=== PATIENT | female | born 1950 | race African-American/Black ===

== ENCOUNTER 2016-06-14 10:07 | Emergency (ER) | payer OTHER ==
[~2016-06-14] VITALS: Ht 172.7 cm; Wt 85.0 kg
[~2016-06-14 10:07] MED LIST: ASPI81TA82 PO; BENZ100 PO; BUME1TAB PO; CARV3.125 PO; CEPH500 PO; CYMB30CA PO; GABA300C3 PO; GUAI600 PO; KCL20 PO; LISI-589 PO; PACE200T4 PO; VENTAER INH; ZOFR4TAB3 SL; ZOLP5TAB3 PO; [UNRECOGNIZED DRUG - OTHER] PO
[2016-06-14 10:13] VITALS: BP 193/111; PULSE 78; RESP 24; TEMP 98.3; O2SAT 86
[2016-06-14 10:20] VITALS: O2SAT 92
[2016-06-14] MEDS ORDERED: SODIUM CHLORIDE 0.9% FLUSH 5 ML FLUSH IVF PRN (10:30)
--- NOTE | 2016-06-14 10:39 | PD ---
HPI Chief Complaint: Abdominal Pain Time Seen by Provider: 10:39 Travel History International Travel<30 days: No Contact w/Intl Traveler<30days: No Traveled to known affect area: No History of Present Illness HPI 65-year-old female with PMH of HTN, CHF, CAD, CVA, emphysema (on 2L O2 by NC at home) surgical history of cholecystectomy, tubal ligation presents to the ED for evaluation two-week history of abdominal pain and generalized weakness. Abdominal pain described as constant, rated 4/10 on presentation. Patient endorses decreased appetite, nausea and subjective fevers. She denies vomiting, diarrhea, constipation, melena or hematochezia, dysuria or hematuria. No treatment attempted at home. Patient states that she sought treatment today after being out of town. Endorses compliance with her home medications. Denies drinking alcohol or cigarette smoking. PFSH Past Medical History Arthritis: Yes Asthma: Yes Anxiety: Yes Depression: Yes Heart Rhythm Problems: Yes Cancer: No Cardiovascular Problems: Yes Congestive Heart Failure: Yes (ENLARGED HEART ) COPD: Yes (EMPYSEMA) Cerebrovascular Accident: Yes Diminished Hearing: Yes (HEARING IMPAIRED, HEARING AID IN LEFT EAR) Endocrine: No Gastrointestinal Disorders: Yes GERD: Yes Genitourinary: No Hypertension: Yes Immune Disorder: No Musculoskeletal: Yes Neurologic: No Psychiatric: Yes Reproductive: No Respiratory: Yes Tetanus Vaccination: < 5 Years ?: Not Past Surgical History Abdominal Surgery: Yes (gallbladder ) AICD: Yes (PACER/DEFIB) Cardiac Surgery: Yes (pacemaker ) Cholecystectomy: Yes Eye Surgery: Yes (cataracts ) Pacemaker: Yes Other Surgery: Yes Social History Alcohol Use: No Tobacco Use: No Substance Use: No Allergies-Medications (Allergen,Severity, Reaction): Coded Allergies: Codeine (Verified Allergy, Unknown, 06/14/16) Penicillin (Verified Allergy, Unknown, 06/14/16) Reported Meds & Prescriptions Reported Meds & Active Scripts Active Zofran Odt (Ondansetron Odt) 4 Mg Tab 4 Mg SL Q8HR PRN Reported Zolpidem (Zolpidem Tartrate) 5 Mg Tab 5 Mg PO HS PRN [potassimin chloride] 20 Meq PO DAILY Lisinopril 5 Mg Tab 5 Mg PO DAILY Gabapentin 300 Mg Cap 300 Mg PO HS Cymbalta DR (Duloxetine HCl) 30 Mg Capdr 30 Mg PO DAILY Coreg (Carvedilol) 3.125 Mg Tab 3.125 Mg PO BID Bumex (Bumetanide) 1 Mg Tab 1 Mg PO DAILY Aspir-81 (Aspirin) 81 Mg Tabdr 81 Mg PO DAILY Amiodarone (Amiodarone HCl) 200 Mg Tab 200 Mg PO DAILY Ventolin Hfa 18 GM Inh (Albuterol Sulfate) 90 Mcg/Act Aer 1 Puff INH Q4H PRN Review of Systems Except as stated in HPI: all other systems reviewed are Neg Physical Exam Narrative GENERAL: Well-nourished, well-developed nontoxic appearing black female in no acute distress. SKIN: Warm and dry. Multiple well-healed scars on the abdomen without signs of infection. HEAD: Normocephalic. EYES: No scleral icterus. No injection or drainage. NECK: Supple, trachea midline. No JVD or lymphadenopathy. CARDIOVASCULAR: Regular rate and rhythm without murmurs, gallops, or rubs. 2+ DP and radial pulses bilaterally. RESPIRATORY: Breath sounds clear and equal bilaterally. No accessory muscle use. GASTROINTESTINAL: Abdomen soft, nondistended. Tender to palpation across the upper quadrants, including epigastric region. No palpable masses. No pulsatile masses. MUSCULOSKELETAL: No cyanosis, or edema. Weakness of left side 2/2 CVA. BACK: Nontender without obvious deformity. No CVA tenderness. Data Data Last Documented VS Vital Signs Date Time Temp Pulse Resp B/P Pulse Ox O2 Delivery O2 Flow Rate FiO2 06/14/16 12:28 89 16 156/89 94 Nasal Cannula 2 06/14/16 10:13 98.3 Orders Complete Blood Count With Diff (06/14/16 10:18) Comprehensive Metabolic Panel (06/14/16 10:18) Lipase (06/14/16 10:18) Iv Access Insert/Monitor (06/14/16 10:18) Ecg Monitoring (06/14/16 10:18) Oximetry (06/14/16 10:18) Sodium Chloride 0.9% Flush (Ns Flush) (06/14/16 10:30) Ondansetron Inj (Zofran Inj) (06/14/16 11:00) Urinalysis - C+S If Indicated (06/14/16 10:46) Ct Abd/Pel W Iv Contrast(Rout) (06/14/16 10:46) Morphine Inj (Morphine Inj) (06/14/16 11:00) Iodixanol 320 Inj (Rad Ct) (Visipaque 32 (06/14/16 11:52) Labs Laboratory Tests Test 06/14/16 06/14/16 10:35 11:20 Sodium Level 136 MEQ/L Potassium Level 4.8 MEQ/L Chloride Level 98 MEQ/L Carbon Dioxide Level 30.2 MEQ/L Anion Gap 8 MEQ/L Blood Urea Nitrogen 24 MG/DL Creatinine 1.59 MG/DL Estimat Glomerular Filtration 40 ML/MIN Rate Random Glucose 94 MG/DL Calcium Level 9.4 MG/DL Total Bilirubin 1.5 MG/DL Aspartate Amino Transf 65 U/L (AST/SGOT) Alanine Aminotransferase 66 U/L (ALT/SGPT) Alkaline Phosphatase 230 U/L Total Protein 8.1 GM/DL Albumin 3.9 GM/DL Lipase 109 U/L White Blood Count 4.8 TH/MM3 Red Blood Count 4.60 MIL/MM3 Hemoglobin 12.8 GM/DL Hematocrit 40.1 % Mean Corpuscular Volume 87.1 FL Mean Corpuscular Hemoglobin 27.8 PG Mean Corpuscular Hemoglobin 31.9 % Concent Red Cell Distribution Width 19.9 % Platelet Count 152 TH/MM3 Mean Platelet Volume 9.0 FL Neutrophils (%) (Auto) 59.5 % Lymphocytes (%) (Auto) 24.4 % Monocytes (%) (Auto) 9.7 % Eosinophils (%) (Auto) 2.8 % Basophils (%) (Auto) 3.6 % Neutrophils # (Auto) 2.8 TH/MM3 Lymphocytes # (Auto) 1.2 TH/MM3 Monocytes # (Auto) 0.5 TH/MM3 Eosinophils # (Auto) 0.1 TH/MM3 Basophils # (Auto) 0.2 TH/MM3 CBC Comment DIFF FINAL Differential Comment Urine Color LIGHT-YELLOW Urine Turbidity CLEAR Urine pH 6.5 Urine Specific [place] 1.007 Urine Protein NEG mg/dL Urine Glucose (UA) NEG mg/dL Urine Ketones NEG mg/dL Urine Occult Blood NEG Urine Nitrite NEG Urine Bilirubin NEG Urine Urobilinogen LESS THAN 2.0 MG/DL Urine Leukocyte Esterase NEG Urine RBC LESS THAN 1 /hpf Urine WBC LESS THAN 1 /hpf Urine Squamous Epithelial 1 /hpf Cells Urine Hyaline Casts 1 /lpf Urine Mucus FEW /lpf Microscopic Urinalysis Comment CULT NOT INDICATED MDM Medical Decision Making Medical Screen Exam Complete: Yes Emergency Medical Condition: Yes Differential Diagnosis GERD versus PUD versus pancreatitis versus biliary colic versus gastritis versus UTI versus other Narrative Course 65-year-old female with PMH of HTN, CHF, CAD, CVA, emphysema on 2L O2 NC at home , surgical history of cholecystectomy, tubal ligation presents to the ED for evaluation two-week history of abdominal pain and generalized weakness. Described as constant, rated 4/10 on presentation. Patient endorses decreased appetite, nausea and subjective fevers. She denies vomiting, diarrhea, constipation, melena or hematochezia, dysuria or hematuria. Patient states that she sought treatment today after being out of town. Vitals reviewed. Patient is hypoxic on presentation, this resolves upon administration of 2 L O2 by nasal cannula. Physical exam reveals a nontoxic-appearing, very hard of hearing black female in no acute distress. Abdomen is soft, nondistended. Multiple well-healed surgical wounds without signs of infection. Tender to palpation in the bilateral upper quadrants including the epigastric area. IV was established. Patient was administered morphine, Zofran. CBC: WBC 4.8. Hemoglobin 12.8. CMP: BUN 24. Creatinine 1.59. AST 65. ALT 66. Alkaline phosphatase 230. Bilirubin 1.5. Lipase: 109 UA: No indication for culture of the UA. CT abdomen and pelvis: Cardiomegaly with small pleural effusions and trace ascites. No etiology for the patient's abdominal pain seen per radiology read. Review of the patients record reveals previous bilirubin of 1.2 and previous Cr of 1.10. Discussed the patient and results of the workup with Dr. Ahumada. Patient is safe for discharge, follow up with the PCP. She was prescribed a short course of zofran and omeprazole, encouraged to eat a bland diet and gradually reintroduce other foods. She indicated understanding of the instructions. She is stable and discharged home. Diagnosis Primary Impression: Abdominal pain Qualified Code: R10.10 - Pain of upper abdomen Referrals: Primary Care Physician Patient Instructions: Abdominal Pain (ED), Diet for Stomach Ulcers and Gastritis (ED), General Instructions Additional Instructions: Rest, hydrate. Take omeprazole daily. Take zofran as prescribed, as needed for nausea and vomiting. Eat a bland diet for the next few days, gradually reintroduce new foods. Follow up with your primary care provider this week. Return to the ED for any urgent or emergent medical condition. Med/Other Pt SpecificInfo: Prescription(s) given Scripts Omeprazole 20 Mg Tab20 Mg PO DAILY #30 TAB Ref 0 Prov:Isabella Ahumada MD 06/14/16 Ondansetron Odt (Zofran Odt)4 Mg Tab4 Mg SL Q8HR PRN (Nausea/Vomiting) #6 TAB Ref 0 Prov:Isabella Ahumada MD 06/14/16 Disposition: 01 DISCHARGE HOME Condition: Stable Margie Mcintyre Jun 14, 2016 10:39
[2016-06-14] MEDS ORDERED: LISI-519 PO (10:50)
[2016-06-14] MEDS ORDERED: CYMB30CA PO (10:50)
[2016-06-14] MEDS ORDERED: POTASSIUM CHLORIDE PO (10:50)
[2016-06-14] MEDS ORDERED: AMIO200T PO (10:50)
[2016-06-14] MEDS ORDERED: GABA300C5 PO (10:50)
[2016-06-14] MEDS ORDERED: BUME1TAB26 PO (10:50)
[2016-06-14] MEDS ORDERED: CARV3.125 PO (10:50)
[2016-06-14] MEDS ORDERED: ASPI81TA81 PO (10:50)
[2016-06-14] MEDS ORDERED: VENTAER INH (10:50)
[2016-06-14] MEDS ORDERED: ZOLP5TAB3 PO (10:51)
[2016-06-14 10:58] VITALS: BP 161/100; PULSE 76; RESP 22; O2SAT 95
[2016-06-14] MEDS ORDERED: MORPHINE SULFATE 4 MG/ML INJ IV PUSH ONE (11:00)
[2016-06-14] MEDS ORDERED: ONDANSETRON HCL 4 MG/2 ML VIAL IV PUSH ONE (11:00)
[2016-06-14 11:23] LABS: ALKALINE PHOSPHATASE 230 U/L (45-117); ALT (GPT) 66 U/L (10-53); ANION GAP 8 MEQ/L (5-15); AST (GOT) 65 U/L (15-37); BICARBONATE 30.2 MEQ/L (21.0-32.0); BLOOD UREA NITROGEN 24 MG/DL (7-18); CHLORIDE 98 MEQ/L (98-107); GLOMERULAR FILTRATION RATE 40 ML/MIN (>89); POTASSIUM 4.8 MEQ/L (3.5-5.1); SODIUM (NA) 136 MEQ/L (136-145); TOTAL BILIRUBIN ADULT 1.5 MG/DL (0.2-1.0)
[2016-06-14 11:47] LABS: AUTOMATED NEUTROPHIL # 2.8 TH/MM3 (1.8-7.7); BASOPHIL # 0.2 TH/MM3 (0-0.2); BASOPHIL % 3.6 % (0.0-2.0); EOSINOPHIL # 0.1 TH/MM3 (0-0.4); EOSINOPHIL % 2.8 % (0.0-4.0); HEMATOCRIT 40.1 % (35.0-46.0); HEMO FLAGS DIFF FINAL; LYMPH % 24.4 % (9.0-44.0); LYMPHOCYTE # 1.2 TH/MM3 (1.0-4.8); MEAN CELL VOLUME 87.1 FL (80.0-100.0); MEAN CORPUSCULAR HEMOGLOBIN 27.8 PG (27.0-34.0); MEAN CORPUSCULAR HGB CONC 31.9 % (32.0-36.0); MONO % 9.7 % (0.0-8.0); NEUT % 59.5 % (16.0-70.0); PLATELET COUNT 152 TH/MM3 (150-450); RED CELL DISTRIBUTION WIDTH 19.9 % (11.6-17.2); WHITE BLOOD COUNT 4.8 TH/MM3 (4.0-11.0)
[2016-06-14] MEDS ORDERED: IODIXANOL 320 MG/ML 10 ML VIAL (for Rad CT) IV ONE (11:52)
[2016-06-14 12:03] LABS: BLOOD, URINE NEG (NEG); COMMENT (UR) CULT NOT INDICATED; CULTURE IF INDICATED CULT NOT INDICATED; GLUCOSE,URINE NEG (NEG); HYALINE CAST, URINE 1 /lpf (RARE); KETONE, URINE NEG (NEG); MUCUS URINE FEW /lpf (OCC); NITRITE,URINE NEG (NEG); PH, URINE 6.5 (5.0-8.5); SQUAMOUS EPITHELIAL CELL URINE 1 /hpf (0-5); URINE COLOR LIGHT-YELLOW (YELLW/STRAW)
--- NOTE | 2016-06-14 12:22 | RADRPT ---
EXAM DATE/TIME: 06/14/2016 11:45 [facility] COMPARISON: No previous studies available for comparison. INDICATIONS : Abdomen pain for two weeks. IV CONTRAST: 50 cc Omnipaque 350 (iohexol) IV ORAL CONTRAST: No oral contrast ingested. RADIATION DOSE: 10.4 CTDIvol (mGy) MEDICAL HISTORY : Cardiovascular disease. Hypertension. SURGICAL HISTORY : Cholecystectomy. Pacemaker. ENCOUNTER: Initial ACUITY: 1 day PAIN SCALE: 5/10 LOCATION: Bilateral abdomen. TECHNIQUE: Volumetric scanning of the abdomen and pelvis was performed. Using automated exposure control and ad justment of the mA and/or kV according to patient size, radiation dose was kept as low as reasonably achievable to obtain optimal diagnostic quality images. FINDINGS: The heart is enlarged with small bilateral pleural effusions. Pacer is evident. The liver is free of focal defects. Surgical clips are seen in the gallbladder fossa. Spleen, pancr eas and adrenal glands are unremarkable. There is symmetrical renal function. Region of the cecum and terminal ileum are unremarkable. Trace ascites is seen in the pelvis. There is mild edema in the sigmoid mesentery. This is nonspecific. Review of bone windows reveals evidence for a previous transpedicular spinal fixation. CONCLUSION: 1. Cardiomegaly with trace pleural effusions and ascites. 2. I don't see an etiology for the patient's abdominal pain. Joe Abdullahi MD FACR on June 14, 2016 at 12:11 Board Certified Radiologist. This report was verified electronically.
[2016-06-14 12:28] VITALS: BP 156/89; PULSE 89; RESP 16; O2SAT 94
[2016-06-14] MEDS ORDERED: ZOFR4TAB3 SL (12:48)
--- NOTE | 2016-06-14 12:50 | PD ---
Data Data Last Documented VS Vital Signs Date Time Temp Pulse Resp B/P Pulse Ox O2 Delivery O2 Flow Rate FiO2 06/14/16 12:28 89 16 156/89 94 Nasal Cannula 2 06/14/16 10:13 98.3 Orders Complete Blood Count With Diff (06/14/16 10:18) Comprehensive Metabolic Panel (06/14/16 10:18) Lipase (06/14/16 10:18) Iv Access Insert/Monitor (06/14/16 10:18) Ecg Monitoring (06/14/16 10:18) Oximetry (06/14/16 10:18) Sodium Chloride 0.9% Flush (Ns Flush) (06/14/16 10:30) Ondansetron Inj (Zofran Inj) (06/14/16 11:00) Urinalysis - C+S If Indicated (06/14/16 10:46) Ct Abd/Pel W Iv Contrast(Rout) (06/14/16 10:46) Morphine Inj (Morphine Inj) (06/14/16 11:00) Iodixanol 320 Inj (Rad Ct) (Visipaque 32 (06/14/16 11:52) Labs Laboratory Tests Test 06/14/16 06/14/16 10:35 11:20 Sodium Level 136 MEQ/L Potassium Level 4.8 MEQ/L Chloride Level 98 MEQ/L Carbon Dioxide Level 30.2 MEQ/L Anion Gap 8 MEQ/L Blood Urea Nitrogen 24 MG/DL Creatinine 1.59 MG/DL Estimat Glomerular Filtration 40 ML/MIN Rate Random Glucose 94 MG/DL Calcium Level 9.4 MG/DL Total Bilirubin 1.5 MG/DL Aspartate Amino Transf 65 U/L (AST/SGOT) Alanine Aminotransferase 66 U/L (ALT/SGPT) Alkaline Phosphatase 230 U/L Total Protein 8.1 GM/DL Albumin 3.9 GM/DL Lipase 109 U/L White Blood Count 4.8 TH/MM3 Red Blood Count 4.60 MIL/MM3 Hemoglobin 12.8 GM/DL Hematocrit 40.1 % Mean Corpuscular Volume 87.1 FL Mean Corpuscular Hemoglobin 27.8 PG Mean Corpuscular Hemoglobin 31.9 % Concent Red Cell Distribution Width 19.9 % Platelet Count 152 TH/MM3 Mean Platelet Volume 9.0 FL Neutrophils (%) (Auto) 59.5 % Lymphocytes (%) (Auto) 24.4 % Monocytes (%) (Auto) 9.7 % Eosinophils (%) (Auto) 2.8 % Basophils (%) (Auto) 3.6 % Neutrophils # (Auto) 2.8 TH/MM3 Lymphocytes # (Auto) 1.2 TH/MM3 Monocytes # (Auto) 0.5 TH/MM3 Eosinophils # (Auto) 0.1 TH/MM3 Basophils # (Auto) 0.2 TH/MM3 CBC Comment DIFF FINAL Differential Comment Urine Color LIGHT-YELLOW Urine Turbidity CLEAR Urine pH 6.5 Urine Specific [place] 1.007 Urine Protein NEG mg/dL Urine Glucose (UA) NEG mg/dL Urine Ketones NEG mg/dL Urine Occult Blood NEG Urine Nitrite NEG Urine Bilirubin NEG Urine Urobilinogen LESS THAN 2.0 MG/DL Urine Leukocyte Esterase NEG Urine RBC LESS THAN 1 /hpf Urine WBC LESS THAN 1 /hpf Urine Squamous Epithelial 1 /hpf Cells Urine Hyaline Casts 1 /lpf Urine Mucus FEW /lpf Microscopic Urinalysis Comment CULT NOT INDICATED MDM Supervised Visit with RENATA: Yes Narrative Course I, Dr. Ahumada, have reviewed the advance practice practioner's documentation and am in agreement, met with the patient face to face, made the diagnosis, and the medical decision making was done by me. *My assessment and Findings: 65-year-old female with multiple medical comorbidities on home O2 here with complaint of abdominal pain for the last 2 weeks, generalized. Some nausea and anorexia. No vomiting or diarrhea. On examination her dominant is benign with only minimal epigastric, right upper quadrant tenderness to palpation. She's had a previous cholecystectomy. Differential includes gastritis, pancreatitis, hepatobiliary pathology. Abdominal examination is benign making peritoneal pathology unlikely. CBC, CMP , lipase, urinalysis were unremarkable other than minimally elevated LFTs. CT abdomen and pelvis were negative. Patient was reassured, will be discharged home with antacid for possible gastritis, antiemetics and outpatient PCP follow- up. Diagnosis Primary Impression: Abdominal pain Qualified Code: R10.10 - Pain of upper abdomen Referrals: Primary Care Physician Patient Instructions: General Instructions, Diet for Stomach Ulcers and Gastritis (ED), Abdominal Pain (ED) Additional Instruction: Rest, hydrate. Take zofran as prescribed, as needed for nausea and vomiting. Eat a bland diet for the next few days, gradually reintroduce new foods. Follow up with your primary care provider this week. Return to the ED for any urgent or emergent medical condition. Disposition: 01 DISCHARGE HOME Condition: Stable Isabella Ahumada MD Jun 14, 2016 12:50
[2016-06-14] MEDS ORDERED: OMEP20TA PO (12:51)
[2016-06-15] MEDS ORDERED: POTA-163 PO (09:34)
== END 2016-06-14 13:35 | disposition home or self-care (01) ==
LOC: NEPE 10:07
DX: R10.9 Unspecified abdominal pain (principal); J43.9 Emphysema, unspecified; I10 Essential (primary) hypertension; Z95.0 Presence of cardiac pacemaker; Z99.81 Dependence on supplemental oxygen
CPT/HCPCS: 74177; 80053; 81001; 83690; 85025; 96374; 96375; 99285; J2270; J2405; Q9967